=== PATIENT | female | born 1985 | race Caucasian/White ===

== ENCOUNTER → 2020-09-30 12:04 | Outpatient (CLI) | payer OTHER, SELFPAY ==
--- NOTE | ~2020-09-30 | US_ITS ---
EXAMINATION: US thyroid DATE: 09/30/2020 12:21 INDICATION: Nontoxic single thyroid nodule. TECHNIQUE: Multiple ultrasound images of the thyroid were obtained. COMPARISON: None. FINDINGS: The right thyroid lobe measures 4.6 x 1.5 x 1.8 cm. The left thyroid lobe measures 4.5 x 1.2 x 1.3 c m. In the right thyroid lobe, there is a 1.8 cm mixed cystic and solid, isoechoic, [id number] n odule with ill-defined margin without echogenic foci (TI-RADS TR2). IMPRESSION: 1. Right thyroid nodule that is not suspicious. No follow-up is needed. Reviewed, dictated and finalized at location A. [employer]
== END ==
PROVIDERS: Visit Provider Nurse Practitioner
DX: E04.1 Nontoxic single thyroid nodule (principal)
CPT/HCPCS: 76536

== ENCOUNTER → 2021-06-27 09:50 | Outpatient (CLI) | payer OTHER, SELFPAY ==
--- NOTE | ~2021-06-27 | US_ITS ---
EXAMINATION: US thyroid DATE: 06/27/2021 10:07 INDICATION: Nontoxic single thyroid nodule. TECHNIQUE: Multiple ultrasound images of the thyroid were obtained. COMPARISON: Ultrasound 09/30/2020 FINDINGS: The right thyroid lobe measures 4.7 x 1.2 x 1.6 cm. The left thyroid lobe measures 4.6 x 1.1 x 1.2 c m. In the thyroid isthmus and right thyroid lobe, there is a 1.8 cm mixed cystic and solid, isoechoi c, [id number] nodule with ill-defined margin without echogenic foci (TI-RADS TR2). IMPRESSION: 1. Stable right thyroid nodule that is not suspicious. No follow-up is needed. Reviewed, dictated and finalized at location B.
== END ==
PROVIDERS: Visit Provider Internal Medicine Endocrinology, Diabetes & Metabolism
DX: E04.1 Nontoxic single thyroid nodule (principal)
CPT/HCPCS: 76536

== ENCOUNTER → 2022-03-02 15:46 | Outpatient (CLI) | payer OTHER, SELFPAY ==
--- NOTE | ~2022-03-02 | US_ITS ---
EXAMINATION: US thyroid DATE: 03/02/2022 15:59 INDICATION: Thyroid nodule. TECHNIQUE: Multiple ultrasound images of the thyroid were obtained. COMPARISON: Ultrasound 06/27/2021, 09/30/20 FINDINGS: The right thyroid lobe measures 5.1 x 1.2 x 1.2 cm. The left thyroid lobe measures 5.0 x 1.3 x 1.2 c m. In the right thyroid lobe and thyroid isthmus, there is 1.8 cm mixed cystic and solid, isoechoic, [id number] nodule with ill-defined margin without echogenic foci (TI-RADS TR2), stable from . IMPRESSION: 1. Right thyroid nodule, stable from 09/30/2020, likely not clinically significant. No follow-up is n eeded. Reviewed, dictated and finalized at location A. IMPRESSION: 1. Right thyroid nodule, stable from 09/30/2020, likely not clinically signific ant. No follow-up is needed.
== END ==
PROVIDERS: PCP Family Medicine; Visit Provider Internal Medicine Endocrinology, Diabetes & Metabolism
DX: E04.1 Nontoxic single thyroid nodule (principal)
CPT/HCPCS: 76536

== ENCOUNTER → 2023-05-03 07:50 | Outpatient (CLI) | payer OTHER, SELFPAY ==
--- NOTE | ~2023-05-03 | US_ITS ---
Thyroid ultrasound. Clinical History: Nontoxic thyroid nodule COMPARISON: 03/02/2022 Findings: Real-time sonography of the thyroid gland was performed. The right lobe measures 5.1 x 2.0 x 1.8 cm. The left lobe measures 4.9 x 1.5 x 1.2 cm. The isthmus is 5 mm in AP diameter. There is a 3 mm hypoechoic nodule at the left upper pole. There is a 2.0 x 1.6 x 2.3 cm mixed solid a nd cystic nodule at the isthmus. Impression: Mixed solid and cystic nodule at the isthmus is similar to prior exam.. Reviewed, dictated and finalized at location . Impression: Mixed solid and cystic nodule at the isthmus is similar to prior exam..
== END ==
PROVIDERS: PCP Internal Medicine Endocrinology, Diabetes & Metabolism; Visit Provider Internal Medicine Endocrinology, Diabetes & Metabolism
DX: E04.1 Nontoxic single thyroid nodule (principal)
CPT/HCPCS: 76536